=== PATIENT | male | born 1955 | race Caucasian/White ===

== ENCOUNTER 2017-10-18 05:25 | Inpatient (IN) ==
[2017-10-18] MEDS ORDERED: Chlorhexidine 4% Topical 120 APPLIC/120 ML Bottle TOPICAL SCH ×2 (06:15)
[2017-10-18] MEDS ORDERED: Chlorhexidine Gluconate 2% 1 Pack (2 Cloths) TOPICAL SCH (06:15)
[2017-10-18] MEDS ORDERED: Metoprolol Tartrate 25 MG Tablet PO SCH (06:15)
[2017-10-18] MEDS ORDERED: Sodium Chlor 0.9% Inj 40 ML, Bupivacaine Liposo PF 1.3% Inj 20 ML P-ARTICULR SCH ×4 (06:15→07:30)
[2017-10-18] MEDS ORDERED: Bupivacaine/Dextrose 0.75% Inj 2 ML Ampul ONE (06:24)
[2017-10-18] MEDS ORDERED: Vancomycin Inj 1 GM/200 ML PIGGYBACK IV.SIG SCH ×3 (06:33→07:00)
[2017-10-18] MEDS ORDERED: ceFAZolin 2 GM Premix Inj 2 GM/50 ML PIGGYBACK IV.SIG ONE (06:52)
[2017-10-18] MEDS ORDERED: Bupivacaine/Epinephrine Inj 0.25% 50 ML Vial ONE (06:52)
[2017-10-18] MEDS ORDERED: Tranexamic Acid Inj 0 MG in Sodium Chlor 0.9% Inj 100 ML IV.SIG SCH (07:00)
[2017-10-18] MEDS ORDERED: Sodium Chlor 0.9% Inj 500 ML IV.SIG SCH (07:00)
[2017-10-18] MEDS ORDERED: SODIUM CHLOR 0.9% IV.SIG SCH (07:30)
[2017-10-18] MEDS ORDERED: TRANEXAMIC ACID IV.SIG SCH (07:30)
[2017-10-18] MEDS ORDERED: ceFAZolin 2 GM/NS 100 ML IV IV.SIG SCH ×2 (07:30)
--- NOTE | 2017-10-18 07:53 | P.DCO ---
- Physical Therapy Physical Therapy: Gait training Knee: Total knee, Protocol: Right, Full weight bearing Canvas Knee Splint: Other (At night for 4 weeks) Right Lower Extremity Range of Motion: Active ROM - Nursing RN: 3 days/week x 2 weeks Nursing: Other Dressing changes: Do not change dressing (Unless saturated) - Certification Need for Home Health services: I have seen patient Shola Adorno on 10/18/17. My clinical findings support the need for the requested home health care services because: Homebound Certification: I certify that my clinical findings support that this patient is homebound because:
[2017-10-18] MEDS ORDERED: Post-op Orders (for Pharmacy) OTHER STA (09:41)
[2017-10-18] MEDS ORDERED: Bisacodyl 10 MG Supp RECTAL PRN (09:41)
[2017-10-18] MEDS ORDERED: Morphine Inj 4 MG/ML Vial IV.PUSH PRN (09:41)
--- NOTE | 2017-10-18 09:51 | P.OP ---
- Preoperative Diagnosis (1) Osteoarthritis of right knee - Postoperative Diagnosis (1) Osteoarthritis of right knee Date of procedure: 10/18/17 Procedure: Right total knee replacement arthroplasty Anesthesia: [facility], [facility] Surgeon: Pro Alarcon MD Bookkeeper Receptionist: Emily Shelby PA-C Operation and Findings: EBL: 75 cc INDICATION: This patient presents with long-standing arthritis of the knee. Attachment record documents conservative measures. The patient now presents for surgical treatment. NOTE: Emily Shelby PA-C was present for the entire surgical procedure as my compounding assistant. In my medical opinion her skill and care was necessary for proper management of this patient. TOURNIQUET TIME: 75 minutes COMPANY: [employer] FEMUR: Size 9, posterior stabilized, cemented TIBIA: Size 8, fixed-bearing, cemented PATELLA: 35 mm POLYETHYLENE INSERT: 11 mm PROCEDURE: This patient was brought the operating room and anesthetized in the supine position. The patient was positioned supine on the table. The tourniquet was placed about the thigh, and the leg was scrubbed with alcohol followed by Hibiclens followed by ChloraPrep and draped sterilely. A timeout was done, and antibiotics were given. After exsanguination the tourniquet was inflated to 300 mmHg. An anterior incision was made and a median parapatellar arthrotomy was performed. The patella was released laterally and subluxed allowing freehand cut of the patella which was then sized. A metal cap was placed over the exposed patellar surface for protection. A aircraft pilot hole was placed in the distal femur allowing a 5 valgus cut removing 9 mm from the distal femur. Anterior posterior and chamfer cuts were made. The posterior stabilize osteotomy was made. The attention was directed to the tibia. Retractors were positioned. The external alignment guide was used allowing the lateral tibia to be used as referencing guide and cut utilizing an oscillating saw taking care to avoid any injury to the surrounding soft tissues. This was sized properly. Trial reduction showed that the insert fit nicely. The patient had range of motion extension 0 flexion 120 . A medial release was necessary. The bony surfaces prepared. On the back table 2 packets of methylmethacrylate were mixed. The components were cemented. Excess cement was removed. The tourniquet let down and hemostasis was controlled. The final plastic insert was inserted. Range of motion was the same as previously noted. A drain was brought through a separate stab incision. The arthrotomy was repaired with interrupted #1 Vicryl suture, subcutaneous tissue 2-0 Vicryl suture and skin with metallic maged A sterile dressing was applied. Sponge counts, needle counts and instrument counts were all correct. The patient tolerated procedure well and was taken to recovery in satisfactory condition. FINDINGS: There was a severe varus deformity with erosion of posterior medial bone stock. We did an extensive posterior medial release and a deep MCL release allowing balancing in full extension. The final solution appeared to be excellent. There was no complication that was appreciated.
[2017-10-18] MEDS ORDERED: Naloxone Inj 0.4 MG/ML Vial ONE (10:05)
[2017-10-18] MEDS ORDERED: fentaNYL Citrate Inj 100 MCG/2 ML Ampul ONE (10:25)
--- NOTE | 2017-10-18 11:02 | XR ---
EXAM DATE: 10/18/2017 10:55 AM EDT AGE/SEX: 62 years / Male INDICATIONS: Short of breath. CLINICAL DATA: This is the patient's initial encounter. Patient reports that signs and symptoms have been present for 1 day and indicates a pain score of 0/10. MEDICAL/SURGICAL HISTORY: None. None. COMPARISON: No prior exams available for comparison. FINDINGS: Bilateral mostly basilar density may represent atelectasis. No significant effusion. No pneumothorax. Heart size enlarged. CONCLUSION: Basilar and perihilar density, probably atelectasis. Questionable early interstitial edema. Cardiomeg greta. Electronically signed by: Danny Murillo MD 10/18/2017 11:00 AM EDT
--- NOTE | 2017-10-18 11:13 | XR ---
EXAM DATE: 10/18/2017 10:57 AM EDT AGE/SEX: 62 years / Male INDICATIONS: Post op right total knee replacement. CLINICAL DATA: This is the patient's initial encounter. Patient reports that signs and symptoms have been present for 1 day and indicates a pain score of 0/10. MEDICAL/SURGICAL HISTORY: None. None. COMPARISON: No prior exams available for comparison. FINDINGS: Right knee arthrolpasty. No hardware loosening or fracture. Post surgical changes. No radiopaque for eign bodies seen. CONCLUSION: Right knee arthrolpasty Electronically signed by: Mau Ochoa MD 10/18/2017 11:11 AM EDT
[2017-10-18] MEDS ORDERED: Normosol-R pH 7.4 Inj 1,000 ML IV.CONT ONE (12:00)
[2017-10-18] MEDS ORDERED: Glycopyrrolate Inj 1 MG/5 ML Syringe IV.PUSH ONE (12:00)
[2017-10-18] MEDS ORDERED: Lidocaine PF 1% Inj 5 ML Syringe INFILTRATN ONE (12:00)
[2017-10-18] MEDS ORDERED: Neostigmine Inj 5 MG/5 ML Syringe IV.PUSH ONE (12:00)
[2017-10-18] MEDS ORDERED: Ketorolac Inj 30 MG/ML (IVP) Vial IV.PUSH ONE (12:00)
--- NOTE | 2017-10-18 15:00 | P.DS ---
Date of admission: 10/18/17 05:25 Primary care physician: Mike Suarez MD Attending physician on discharge: Pro Alarcon Anticipated date of discharge: 10/19/17 Brief History from admission: has had ongoing right knee pain for over 10 years. He had previous arthroscopic surgery of the right knee. He began taking diclofenac over-the- counter 1 or 2 years ago because of increasing pain. He has now developed a substantial limp. Cortisone injections were discussed but because of his diabetes were declined. Despite decreasing his activity substantially he has continued to have pain. Right total knee arthroplasty was recommended and he now presents for the above procedure. DS: Diagnosis - Discharge Diagnosis (1) Osteoarthritis of right knee Status: Acute DS: Medications - Discharge Medications Prescriptions: oxycodone-acetaminophen 1 tab PO Q4HR PRN #42 tab PRN Reason: Acute Pain DS: Summary Hospital Course: Surgical treatment was performed on the day of admission without complication. He recovered well in PACU and was transferred to the orthopedic floor. Pain was controlled with IV and oral medications. He was begun on aspirin for DVT prophylaxis. A chest xray was performed postop showing mild atelectasis. He was compliant with physical therapy and his knee immobilizer brace when in bed. After one day he was found to be stable and discharged home with home health care. He was educated to continue a high fiber diet for 5-7 days postop, to ice the operative leg twice daily, and to continue his physical therapy. He was given prescriptions for aspirin and oxycodone. - Time Spent with Patient Total time spent providing and/or coordinating discharge services: Less than 30 minutes - Quality: VTE Deep Vein Thrombosis/Pulmonary Embolism Present on Admission: No Exam Vital signs: Vital Signs 10/18/17 06:00 10/18/17 06:45 10/18/17 10:07 Temperature 98.6 F 98.5 F Pulse Rate 61 62 68 Respiratory Rate 16 14 Blood Pressure 157/94 H 107/65 Pulse Oximetry 94 L 90 L 10/18/17 10:15 10/18/17 10:30 10/18/17 10:45 Temperature Pulse Rate 70 70 55 L Respiratory Rate 17 17 20 Blood Pressure 101/67 115/66 124/69 Pulse Oximetry 93 L 94 L 94 L 10/18/17 11:00 10/18/17 11:15 10/18/17 11:45 Temperature Pulse Rate 55 L 62 59 L Respiratory Rate 22 18 16 Blood Pressure 130/74 134/66 154/85 H Pulse Oximetry 95 93 L 95 10/18/17 12:00 10/18/17 12:15 10/18/17 12:45 Temperature Pulse Rate 64 61 62 Respiratory Rate 18 15 17 Blood Pressure 167/91 H 155/89 H 147/78 H Pulse Oximetry 94 L 94 L 96 10/18/17 13:30 Temperature 98.1 F Pulse Rate 59 L Respiratory Rate 17 Blood Pressure 140/75 Pulse Oximetry 94 L Intake & Output 10/17/17 10/18/17 10/18/17 18:59 06:59 18:59 Intake Total 1520 / 1520 Output Total 775 / 775 Balance 745 / 745 Weight 101.7 kg 101.7 kg Intake: Oral 420 / 420 Anesthesia Amount 1100 / 1100 Output: Urine 700 / 700 Estimated Blood Loss 75 / 75 Other: Weight On Admission 101.7 kg Results Procedures completed during hospitalization: Right total knee arthroplasty Labs on day of discharge: Labs from last 24 hours 10/18/17 10/18/17 10:21 06:05 POC Glucose 178 H Blood Type B Positive Antibody Screen Negative MTS Gel Crossmatch See Detail - Impressions ITS Impressions Chest X-Ray 10/18/17 00:00 CONCLUSION: Basilar and perihilar density, probably atelectasis. Questionable early interstitial edema. Cardiomegaly. Knee X-Ray 10/18/17 09:41 CONCLUSION: Right knee arthrolpasty Discharge Plan - Discharge Disposition Patient Disposition: /Home Health Service - Discharge Condition Condition: Good - Discharge Order Discharge Orders: Discharge Order (Routine); Ordered 10/19/17 Ordered By: Pro Alarcon - Discharge Details Anticipated Discharge Date: 10/19/17 - Physicians Team Primary Care Provider: Mike Suarez Attending Provider: Pro Alarcon Other Providers: [facility]ency - Rxs /Orders / Referrals /Forms Prescriptions: New aspirin [Aspirin Low Dose] 81 mg Tablet,Delayed Release (Dr/Ec) 81 mg PO BID Qty: 60 RF: 0 oxycodone-acetaminophen 5-325 mg Tablet 1 tab PO Q4HR PRN (Reason: Acute Pain) Qty: 42 RF: 0 Continue diclofenac sodium 75 mg Tablet,Delayed Release (Dr/Ec) 75 mg PO BID hydralazine 50 mg Tablet 50 mg PO DAILY losartan 100 mg Tablet 100 mg PO DAILY metformin 500 mg Tablet Extended Release 24hr 500 mg PO DAILY nifedipine 90 mg Tablet Extended Release 90 mg PO DAILY Ambulatory Orders / Order Sets / DME: Adjustable Commode 3-in-1 (1 each) (Routine) Location: Determined by Patient Ordered By: Emily Shelby Walker With Front Wheels (1 each) (Routine) Location: Determined by Patient Ordered By: Emily Shelby Referrals: Mike Suarez MD [Primary Care Provider] - See Instructions - Discharge Instructions Patient Printed Instructions: Knee Replacement (DC) - Post Discharge Care Plan Care Plan Goals: Discharge Care Plan Goals for RIGHT Total Knee Replacement You have undergone knee replacement surgery. Your doctor replaced your painful joint with an artificial joint to relieve pain and restore movement. Here are some goals to help you heal well. Directions to Meet your Goals: 1. Activity & Exercises: * Take pain medicine as directed by your doctor. * Sit in chairs with arms. The arms make it easier for you to stand up or sit down. * Dont sit for more than 30 to 45 minutes at one time. * Nap if you are tired, but dont stay in bed all day. * Sleep with a pillow under your ankle, not your knee. Be sure to change the position of your leg during the night. * Wear the support stockings you were given in the hospital as directed by your surgeon. 2. Prevent Falls/Injury: The calabrese to successful recovery is movement with walking and exercising your knee as directed by your doctor. * Arrange your household to keep the items you need handy. Keep everything else out of the way. * Remove items that may cause you to fall, such as throw rugs and electrical cords. * Use nonslip bath mats, grab bars, an elevated toilet seat, and a shower chair in your bathroom * Sit on a shower stool or chair when you shower to keep from falling. * Until your balance, flexibility, and strength improve, use a cane, crutches, a walker, handrails, or someone to help you. * Keep your hands free by using a backpack, mike pack, apron, or pockets to carry things * Walk up and down stairs with support. Try one step at a time. Use the railing if possible. * Dont drive until your doctor says its OK. * Dont drive while you are taking opioid pain medicine. 3. Precautions: * Prevent infection. Any infection will need to be treated immediately. Call your doctor right away if you think you might have an infection. * Tell your dentist that you have an artificial joint and take antibiotics as prescribed before any dental work. * Tell all your healthcare providers about your artificial joint before any medical procedure. * Maintain a healthy weight. Get help to lose any extra pounds. Added body weight puts stress on the knee. * Your medications may include blood-thinning medicine to prevent blood clots or antibiotics to prevent infection-prevent any falls or cuts 4. Incision Care: * Prevent infection by washing your hands often. If an infection occurs, it will need to be treated right away. * Call your doctor right away if you think you may have an infection. Symptoms include a fever or an incision that leaks white, green, or yellow fluid. * Don't soak your incision in water until your doctor says its OK. This means no hot tubs, bathtubs, or swimming pools. * Follow your doctor's instructions for changing the dressing. Do not change the dressing unless it becomes saturated or if your home nurse is concerned about inappropriate redness. * Dont rub the incision, or apply creams or lotions to it. Keep the incision sealed and dry when you shower (do not shower until 5-6 days after surgery). No tubs baths, pools or soaking for at least 3-4 weeks after surgery. * If you notice any redness or drainage around the bandage site, contact your surgeon's office immediately. 5. Follow-Up: Do Not miss your follow-up appointment. It should already be scheduled. If you do not have an appointment, please call the office for a date and time. Keep up with all your appointments and yearly check ups When to call your doctor: Call your doctor right away if you have: Fever of 100.4F (38C) or higher, or as directed by your doctor Shaking chills Stiffness, or inability to move the knee Increased swelling in your leg Increased redness, tenderness, or swelling in or around the knee incision Drainage from the knee incision Increased knee pain Call 911: Call 911 right away if you have: Chest pain Shortness of breath Any pain or tenderness in your calf
[2017-10-18] MEDS: hydrALAZINE 50 MG Tablet PO SCH (15:28)
[2017-10-18] MEDS: Senna/Docusate Sodium 8.6/50 MG Tablet PO SCH (20:06)
[2017-10-18] MEDS: Multivitamin/Minerals Therapeutic Tablet PO SCH (20:06)
[2017-10-18] MEDS ORDERED: Temazepam 15 MG Capsule PO PRN (21:00)
[2017-10-19 06:06] LABS: Hematocrit 33.4 % (39.0-51.0); Hemoglobin 11.7 gm/dL (13.0-17.0)
--- NOTE | 2017-10-19 09:25 | P.PNOP ---
Subjective Interval history: He is doing well this morning. His pain is very well controlled. He is pleased with his lef alignment. He is urinating frequently. No new CP or SOB. Ready for discharge home. Physical Exam Vital signs: Vital Signs 10/18/17 10:07 10/18/17 10:15 10/18/17 10:30 Temperature 98.5 F Pulse Rate 68 70 70 Respiratory Rate 14 17 17 Blood Pressure 107/65 101/67 115/66 Pulse Oximetry 90 L 93 L 94 L 10/18/17 10:45 10/18/17 11:00 10/18/17 11:15 Temperature Pulse Rate 55 L 55 L 62 Respiratory Rate 20 22 18 Blood Pressure 124/69 130/74 134/66 Pulse Oximetry 94 L 95 93 L 10/18/17 11:45 10/18/17 12:00 10/18/17 12:15 Temperature Pulse Rate 59 L 64 61 Respiratory Rate 16 18 15 Blood Pressure 154/85 H 167/91 H 155/89 H Pulse Oximetry 95 94 L 94 L 10/18/17 12:45 10/18/17 13:30 10/18/17 16:00 Temperature 98.1 F 98.6 F Pulse Rate 62 59 L 83 Respiratory Rate 17 17 18 Blood Pressure 147/78 H 140/75 173/98 H Pulse Oximetry 96 94 L 91 L 10/18/17 19:30 10/19/17 00:15 10/19/17 03:16 Temperature 99.1 F 98.8 F 98.7 F Pulse Rate 81 82 73 Respiratory Rate 18 18 18 Blood Pressure 160/82 H 150/71 H 141/87 H Pulse Oximetry 93 L 92 L 92 L 10/19/17 08:00 Temperature 98.2 F Pulse Rate 68 Respiratory Rate 18 Blood Pressure 172/82 H Pulse Oximetry 93 L Intake & Output 10/18/17 10/19/17 10/19/17 18:59 06:59 18:59 Intake Total 2100 / 2100 560 / 560 Output Total 775 / 775 Balance 1325 / 1325 560 / 560 Weight 101.7 kg 101.7 kg Intake: IV 100 / 100 200 / 200 Ancef Inj 1,000 MG In NS Inj 100 / 100 200 / 200 100 ML @ 200 mls/hr IV.SIG Q6H [facility] Rx#:[id number] Oral 900 / 900 360 / 360 Anesthesia Amount 1100 / 1100 Output: Urine 700 / 700 Estimated Blood Loss 75 / 75 Other: # Voids 3 3 Date of Last Bowel Movement 10/18/17 10/18/17 # Bowel Movements 0 Narrative: Laying in bed CKS on right leg NAD RLE Knee dressing c/d/i, mild to moderate swelling, no erythema +motor at distal, +sens, +nvi Neg homans, mild 1+ edema ankle - Constitutional no acute distress Results - Labs CBC & Chem 7: 10/19/17 05:25 Laboratory Results - last 24 hr 10/18/17 10/19/17 10:21 05:25 Hgb 11.7 L Hct 33.4 L POC Glucose 178 H - Imaging Impressions Chest X-Ray 10/18/17 00:00 CONCLUSION: Basilar and perihilar density, probably atelectasis. Questionable early interstitial edema. Cardiomegaly. Knee X-Ray 10/18/17 09:41 CONCLUSION: Right knee arthrolpasty - Procedures Right total knee arthroplasty Assessment and Plan - Ortho Post Op Day # 1 - Problem List (1) Osteoarthritis of right knee Code(s): M17.11 - Unilateral primary osteoarthritis, right knee Status: Acute - Assessment and Plan pod#1 s/p R TKA Doing well today. Pain well controlled. Ok to d/c home after PT today. PT - WBAT RLE. Walker as needed. Hold dressing changes unless saturated or erythema. ASA 81mg for dvt prophylaxis. F/U in 2 weeks as scheduled. DME written.
[2017-10-19] MEDS: Multivitamin/Minerals Therapeutic Tablet PO SCH (09:29)
[2017-10-19] MEDS: Senna/Docusate Sodium 8.6/50 MG Tablet PO SCH (09:29)
[2017-10-19 12:19] VITALS: BP 154/80; PULSE 80; RESP 20; TEMP 98.5; O2SAT 90
[2017-10-19] MEDS: hydrALAZINE 50 MG Tablet PO SCH (13:23)
== END 2017-10-19 14:19 | disposition home health service (06) ==
LOC: HSDI 05:25 → N06 13:37
PROVIDERS: ADMIT Orthopaedic Surgery Orthopaedic Surgery of the Spine; ATTEND Orthopaedic Surgery Orthopaedic Surgery of the Spine